=== PATIENT | female | born 1965 | race Caucasian/White ===

== ENCOUNTER 2021-02-19 12:39 | Emergency (ER) | payer MEDICARE ==
[2021-02-19 12:57] VITALS: BP 142/80; PULSE 91; O2SAT 95
--- NOTE | 2021-02-19 13:13 | ERPHSYRPT ---
- History of Present Illness Time Seen by Provider: 02/19/21 12:46 Source: patient Exam Limitations: no limitations Patient Subjective Stated Complaint: Pt states "I was walking my dog and he went off the porch and I went off with him and when I stepped down my left ankle rolled." Triage Nursing Assessment: PT presented alert and oriented X 3, skin pwd. Pt left ankle swollen laterally. CSM X 4 Physician History: 55 years old female presented in the ER with chief complaint of left ankle pain and swelling after she twisted while getting off of the porch with her dog prior to arrival. She has a swelling left lateral ankle and is unable to have any weightbearing. No pain in the foot. No injury anywhere else. Method of Injury: twisted Occurred: just prior to arrival Quality: sharpness Severity of Pain-Max: moderate Severity of Pain-Current: moderate Lower Extremities Pain: ankle: left Modifying Factors: Improves With: immobilization. Worsens With: movement Associated Symptoms: unable to bear weight Allergies/Adverse Reactions: Penicillins Allergy (Severe, Verified 02/19/21 12:58) Swelling Home Medications: Amitriptyline HCl 75 mg PO DAILY 02/19/21 [History] Bupropion HCl [Wellbutrin Xl] 300 mg PO DAILY 02/19/21 [History] Cetirizine HCl 10 mg PO DAILY 02/19/21 [History] Losartan Potassium [Cozaar] 50 mg PO DAILY 02/19/21 [History] Topiramate [Topiramate ER] 100 mg PO DAILY 02/19/21 [History] Hx Tetanus, Diphtheria Vaccination/Date Given: Yes Hx Influenza Vaccination/Date Given: No Hx Pneumococcal Vaccination/Date Given: No Immunizations Up to Date: Yes Travel Risk - International Travel Have you traveled outside of the country in past 3 weeks: No - Coronavirus Screening Are you exhibiting any of the following symptoms?: No Close contact with a COVID-19 positive Pt in past 14-21 Days: No - Vaccine Status Have you recieved a Covid-19 vaccination: Yes Gold Marker: [facility] - Vaccination Dates Date of 2cond Vaccination (if applicable): 12/29/2020 - Review of Systems Constitutional: No Symptoms Ears, Nose, & Throat: No Symptoms Respiratory: No Symptoms Cardiac: No Symptoms Abdominal/Gastrointestinal: No Symptoms Genitourinary Symptoms: No Symptoms Musculoskeletal: Injury, Joint Pain, Joint Swelling Skin: No Symptoms Neurological: No Symptoms Endocrine: No Symptoms Hematologic/Lymphatic: No Symptoms Immunological/Allergic: No Symptoms - Past Medical History Pertinent Past Medical History: Yes Cardiac History: Hypertension - Past Surgical History Past Surgical History: Yes Other Surgical History: tubal. tubal reversal. noelle - Social History Smoking Status: Former smoker Exposure to second hand smoke: No Drug Use: none Patient Lives Alone: No - Female History Hx Now: No - Nursing Vital Signs Nursing Vital Signs: Initial Vital Signs Temperature 99.1 F 02/19/21 12:51 Pulse Rate 91 H 02/19/21 12:51 Respiratory Rate 20 02/19/21 12:51 Blood Pressure 142/80 02/19/21 12:51 O2 Sat by Pulse Oximetry 95 02/19/21 12:51 Pain Scale Pain Intensity 5 - Physical Exam General Appearance: no apparent distress, alert Neck Exam: normal inspection, full range of motion Cardiovascular/Respiratory Exam: normal breath sounds, regular rate/rhythm Back Exam: normal inspection, normal range of motion Legs Exam: bilateral leg: non-tender, normal inspection, normal range of motion Knees Exam: bilateral knee: non-tender, normal inspection, normal range of motion, no evidence of injury Ankle Exam: right ankle: non-tender, normal inspection, normal range of motion, no evidence of injury, left ankle: bone tenderness (Lateral malleolus), limited range of motion, pain, soft tissue tenderness, swelling (Lateral malleolus) Foot Exam: bilateral foot: non-tender, normal inspection, normal range of motion Neuro/Tendon Exam: normal sensation, normal motor functions Mental Status Exam: alert, 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 Skin Exam: normal color SpO2 Interpretation: normal SpO2: 95 O2 Delivery: Room Air Ordered Tests: Active Orders 24 hr Category Date Time Status ANKLE (3 VIEWS) Stat Exams 02/19/21 Ordered - Progress Progress: unchanged Progress Note: 02/19/21 13:23 Does not want any pain medications now. I did not appreciate any fracture dislocation x-rays reviewed by me, official report is pending, will place in a long boot, weightbearing as tolerated and outpatient podiatry follow-up recommended. Discussed signs symptoms of worsening needing return to ER which she seems understanding. Counseled pt/family regarding: diagnosis, need for follow-up, rad results - Departure Departure Disposition: Home Clinical Impression: Ankle sprain Qualifiers: Encounter type: initial encounter Involved ligament of ankle: unspecified ligament Laterality: left Qualified Code(s): S93.402A - Sprain of unspecified ligament of left ankle, initial encounter Condition: Stable Critical Care Time: No Referrals: [facility]PERATOR [Primary Care Provider] - (Call tomorrow for appointment) JONI SOMMERS DPM [ACTIVE STAFF] - (Call tomorrow for appointment) Instructions: Ankle Sprain (DC), Ankle Fracture (DC) Additional Instructions: Take ibuprofen and [place] as needed for pain. Weightbearing as tolerated. Follow-up with podiatry for reevaluation. Return to ER for increasing pain swelling etc. Prescriptions: Ibuprofen 600 mg PO Q6HPRN PRN 10 Days #20 tablet PRN Reason: Pain Hydrocodone/APAP 5/325 [[place] 5/325 mg] 1 each PO Q6H PRN PRN 3 Days #10 tablet MDD 6 PRN Reason: Pain
--- NOTE | 2021-02-19 17:32 | XRAY ---
Indication: Pain following injury. Comparison: None 3 view left ankle demonstrates anterior lateral soft tissue swelling, tiny distal tibial healed fibrous cortical defect, and small plantar/tiny heel spurs. No other bony, articular, or soft tissue abnormalities.
== END 2021-02-19 13:46 | disposition home or self-care (01) ==
LOC: ED 12:39
DX: S93.402A Sprain of unspecified ligament of left ankle, initial encounter (principal); X50.0XXA Overexertion from strenuous movement or load, initial encounter; Y93.K1 Activity, walking an animal; Y92.89 Other specified places as the place of occurrence of the external cause; M25.572 Pain in left ankle and joints of left foot; M25.472 Effusion, left ankle
CPT/HCPCS: 73610; 99283; L4386

== ENCOUNTER 2021-10-20 20:47 | Emergency (ER) | payer MEDICARE ==
[2021-10-20 21:27] VITALS: PULSE 74
--- NOTE | 2021-10-20 21:29 | ERPHSYRPT ---
- History of Present Illness Time Seen by Provider: 10/20/21 21:27 Source: patient Exam Limitations: no limitations Patient Subjective Stated Complaint: Patient states that she has had a headache "for awhile." Indicates that this is not unusual for her but that they have been becoming more frequent and more severe in the last few months since starting a new part-time job at [employer]. 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 Patient worried because approx an hour prior to coming to ED, she could feel her pulse in the right back side of her head. It lasted about 5 minutes and this is new for her. Triage Nursing Assessment: Patient ambulated back to ED without difficulties. Patient is alert and oriented and aswering questions appropriately. PERRL. Physician History: Patient states that she has had a headache "for awhile." Indicates that this is not unusual for her but that they have been becoming more frequent and more severe in the last few months since starting a new part-time job at [employer]. 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 Patient worried because approx an hour prior to coming to ED, she could feel her pulse in the right back side of her head. It lasted about 5 minutes and this is new for her. Timing/Duration: today Quality: throbbing Head Pain Location: global Severity of Pain-Max: moderate Severity of Pain-Current: moderate Recent Head Trauma: no recent headache/trauma Associated Symptoms: denies symptoms Allergies/Adverse Reactions: Penicillins Allergy (Severe, Verified 10/20/21 21:01) Swelling Home Medications: Atorvastatin Calcium [Lipitor] 1 tab PO HS 10/20/21 [History] Clonidine HCl 0.1 mg [Clonidine 0.1 mg Tablet] 1 tab PO BID PRN 10/20/21 [History] Losartan Potassium 50 mg [Cozaar 50 MG] 1 tab PO DAILY 10/20/21 [History] Metformin HCl Xr 500 mg [Glucophage XR 500 MG] 1 tab PO DAILY 10/20/21 [History] Spironolactone 25 mg [Aldactone 25 MG] 1 tab PO DAILY 10/20/21 [History] Hx Tetanus, Diphtheria Vaccination/Date Given: Yes (Not tetanus) Hx Influenza Vaccination/Date Given: No Hx Pneumococcal Vaccination/Date Given: No Immunizations Up to Date: Yes Travel Risk - International Travel Have you traveled outside of the country in past 3 weeks: No (N) If Yes, where;: N - Coronavirus Screening Are you exhibiting any of the following symptoms?: No Close contact with a COVID-19 positive Pt in past 14-21 Days: No - Vaccine Status Have you recieved a Covid-19 vaccination: Yes Line T[employer]ake[employer]: Om[employer]-ID - Vaccination Dates Date of 2cond Vaccination (if applicable): 12/29/2020 - Review of Systems Constitutional: No Fever, No Chills Eyes: No Symptoms Ears, Nose, & Throat: No Symptoms Respiratory: No Cough, No Dyspnea Cardiac: No Chest Pain, No Edema, No Syncope Abdominal/Gastrointestinal: No Abdominal Pain, No Nausea, No Vomiting, No Diarrhea Genitourinary Symptoms: No Dysuria Musculoskeletal: No Back Pain, No Neck Pain Skin: No Rash Neurological: Headache, No Dizziness, No Focal Weakness, No Sensory Changes Psychological: No Symptoms Endocrine: No Symptoms All Other Systems: Reviewed and Negative - Past Medical History Pertinent Past Medical History: Yes Neurological History: No Pertinent History ENT History: No Pertinent History Cardiac History: Hypertension Respiratory History: No Pertinent History Endocrine Medical History: No Pertinent History Musculoskeletal History: No Pertinent History GI Medical History: No Pertinent History History: No Pertinent History Psycho-Social History: No Pertinent History Female Reproductive Disorders: No Pertinent History Other Medical History: Brain Aneurysm in 2011 with stent placement to left side - Past Surgical History Past Surgical History: Yes Neuro Surgical History: Other Cardiac: No Pertinent History Respiratory: No Pertinent History Gastrointestinal: Cholecystectomy Genitourinary: No Pertinent History Musculoskeletal: No Pertinent History Female Surgical History: Tubal Ligation Other Surgical History: tubal reversal, brain stent to left side - Social History Smoking Status: Former smoker Exposure to second hand smoke: No Drug Use: none Patient Lives Alone: No - Nursing Vital Signs Nursing Vital Signs: Initial Vital Signs Temperature 98.6 F 10/20/21 21:01 Pulse Rate 74 10/20/21 21:01 Respiratory Rate 20 10/20/21 21:01 Blood Pressure 144/65 10/20/21 21:01 O2 Sat by Pulse Oximetry 98 10/20/21 21:01 Pain Scale Pain Intensity 6 - Physical Exam General Appearance: no apparent distress Eye Exam: PERRL/EOMI Ears, Nose, Throat Exam: normal ENT inspection, moist mucous membranes Neck Exam: normal inspection, supple, full range of motion, No meningismus Respiratory Exam: normal breath sounds, lungs clear Cardiovascular Exam: regular rate/rhythm, normal heart sounds Gastrointestinal/Abdominal Exam: soft, No tenderness, No distention Back Exam: normal inspection, normal range of motion Mental Status Exam: alert, 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, 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 Exam: normal speech, PERRL, No facial droop Coordination/Gait Exam: normal cerebellar function Motor/Sensory Exam: no motor deficit, no sensory deficit Skin Exam: normal color, warm, dry, No rash SpO2: 98 - Course Nursing assessment & vital signs reviewed: Yes - CT Exams Head CT Interpretation: Tele-radiologist Report, No/Intracranial Hemorrhag Ordered Tests: Active Orders 24 hr Category Date Time Status HEAD WITHOUT CONTRAST [CT] Stat Exams 10/20/21 21:12 Taken Medication Summary Generic Name Dose Route Start Last Admin Trade Name Freq PRN Reason Stop Dose Admin Ketorolac Tromethamine 60 mg 10/20/21 22:24 Ketorolac Tromethamine 30 Mg/Ml Inj IM 10/20/21 22:25 STAT ONE - Progress Progress: improved, unchanged Air Movement: good Blood Culture(s) Obtained: No Antibiotics given: No Counseled pt/family regarding: diagnosis, rad results - Departure Departure Disposition: Home Clinical Impression: Headache Qualifiers: Headache type: other vascular headache Qualified Code(s): G44.1 - Vascular headache, not elsewhere classified Condition: Stable Critical Care Time: No Referrals: LEROY SAGASTUME DO [Primary Care Provider] - Follow up/PCP as directed Instructions: Headache, Adult (DC) Additional Instructions: Discharge/Care Plan MELISSA STEPHENCHARBEL DUNNE was seen on 10/20/21 in the Emergency Room. The patient was counseled regarding Diagnosis,Lab results, Imaging studies, need for follow up and when to return to the Emergency Room. Prescriptions given: Discharge Note I have spoken with the patient and/or caregivers. I have explained the patient's condition, diagnosis and treatment plan based on the information available to me at this time. I have answered the patient's and/or caregiver's questions and addressed any concerns. The patient and/or caregivers have as good understanding of the patient's diagnosis, condition and treatment plan as can be expected at this point. The vital signs have been stable. The patient's condition is stable and appropriate for discharge from the emergency department. The patient will pursue further outpatient evaluation with the primary care physician or other designated or consulting physician as outlined in the discharge instructions. The patient and/or caregivers are agreeable to this plan of care and follow-up instructions have been explained in detail. The patient and/or caregivers have received these instruction. The patient/and or caregivers are aware that any significant change in condition or worsening of symptoms should prompt an immediate return to this or the closest emergency department or call 911. CHARBEL STAHL was seen on 10/20/21 n the Emergency Room. At that time you were treated for an emergent condition, during your visit Laboratory, Radiology and/or other procedures may have been ordered. It is very important that you follow-up with your Primary Care Physician LEROY SAGASTUME DO within the next 24-48 hours to review your Emergency Room visit and the final results of testing that was ordered. Some test results such as Urine Cultures, Blood Cultures, and other cultures if ordered will not be finalized for 24-48 hours. If you do not have a Primary Care Provider please call the medical records department at [phone] ext [phone] to obtain a copy of your results or you may sign into our patient portal to obtain these results by visiting us @ [email or web address] and completing the following steps: 1. Click on the Patient Portal link 2. Click the Patient Self Enrollment Link to complete the enrollment form and entering your 3. Once the enrollment form is completed you will receive an email with a temporary ID and password at the email address you provided. 4. Next choose a user name and password. Your user name must be at least 4 characters long and your password must be at least 4 characters long. 5. Choose a security question from the list and provide your answer to the question. If you already have signed into the Health Portal you may access your Health Care Information 11/02 by the following steps: 1. Login to our website @ [email or web address] 2. Enter your original user name and password. FAQS The [facility] Health Portal is an online tool that contains your Lab Results, Radiology Reports, Visit History, Discharge Instructions and Health Summary Lab and Radiology Results will not be available for 72 hours on the portal. The Portal is a secure site, passwords are encryted and URLs are re-written so they cannot be copied and pasted. You and authorized family members are the only ones who can access your Portal. Also there is a timeout feature that protects your information if you leave the Portal page open. If you have technical difficulty please use the Contact Us link on the page this will allow you to submit any questions you have regarding the Portal or you may contact the Medical Record Department at [phone] ext [phone].
[2021-10-20 22:05] VITALS: BP 119/62
[2021-10-20] MEDS ORDERED: TORAdol 30 mg Injection IM ONE (22:24)
[2021-10-20] MEDS ORDERED: TORAdol 30 mg Injection ONE (22:25)
[2021-10-20 22:26] VITALS: O2SAT 98
--- NOTE | 2021-10-21 07:39 | XRAY ---
Indication: Worsening headaches. Multiple contiguous axial images obtained through the head without contrast. Comparison: None Age-appropriate global atrophy and minimal periventricular degenerative micro-ischemia bilaterally. 8mm remote lacunar infarct left basal ganglia. No acute intracranial hemorrhage, abnormal extra-axial fluid collection, or mass effect. Fourth ventricle is midline without hydrocephalus. [place]-white matter differentiation preserved. Bony calvarium intact. Visualized paranasal sinuses and mastoid air cells are clear. Impression: Atrophy and degenerative micro-ischemia within normal limits for patient's age. Remote lacunar infarct left basal ganglia. No acute intracranial abnormalities. Comment: Preliminary interpretation made by [facility]. No critical discrepancy.
== END 2021-10-20 23:01 | disposition home or self-care (01) ==
LOC: ED 20:47
DX: G44.1 Vascular headache, not elsewhere classified (principal); I10 Essential (primary) hypertension; Z79.899 Other long term (current) drug therapy
CPT/HCPCS: 70450; 96372; 99284; J1885

== ENCOUNTER 2022-09-22 19:22 | Emergency (ER) | payer MEDICARE, OTHER ==
--- NOTE | 2022-09-22 19:25 | ERPHSYRPT ---
- History of Present Illness Time Seen by Provider: 09/22/22 19:25 Source: patient Exam Limitations: no limitations Physician History: This is a 57-year-old white female patient of Dr. Boyer who presents with at least 1 week possibly more pain in her right upper back that came across under her right breast. In the last couple of days she has noticed a rash in this distribution. The pain is significant. Initially there was a burning bouts of sharp pain. She is not taking any medication for this. She is concerned that this may be shingles. She has not had a fever. She does not have cough. She does not have chest pain. She is had no nausea vomiting or diarrhea. Timing/Duration: week(s) (Greater than a week), worse Method of Injury: other (No injury) Quality: burning, sharp Severity of Pain-Max: mild Severity of Pain-Current: moderate (Described as both sharp and burning) Associated Symptoms: denies symptoms Previous symptoms: no prior history Allergies/Adverse Reactions: Penicillins Allergy (Severe, Verified 10/20/21 21:01) Swelling acetaminophen [From Vicodin] Allergy (Verified 10/20/21 22:38) hydrocodone [From Vicodin] Allergy (Verified 10/20/21 22:38) Home Medications: Atorvastatin Calcium [Lipitor] 1 tab PO HS 10/20/21 [History] Clonidine HCl 0.1 mg [Clonidine 0.1 mg Tablet] 1 tab PO BID PRN 10/20/21 [History] Losartan Potassium 50 mg [Cozaar 50 MG] 1 tab PO DAILY 10/20/21 [History] Spironolactone 25 mg [Aldactone 25 MG] 1 tab PO DAILY 10/20/21 [History] Benzonatate 100 mg PO DAILY 08/31/22 [History] Cyanocobalamin (Vitamin B-12) [Vitamin B-12] 1 tab SL DAILY 08/31/22 [History] methocarbamoL [Methocarbamol] 1 tab PO DAILY 08/31/22 [History] Ergocalciferol (Vitamin D2) [Vitamin D2] 1,250 mcg PO DAILY 09/22/22 [History] Metoprolol Succinate 25 mg Xl* [Toprol-Xl 25MG Tablets] 25 mg PO DAILY 09/22/22 [History] Sitagliptin Phosphate 50 MG [Januvia 50 MG] 50 mg PO DAILY 09/22/22 [History] Hx Tetanus, Diphtheria Vaccination/Date Given: Yes (Not tetanus) Hx Influenza Vaccination/Date Given: No Hx Pneumococcal Vaccination/Date Given: No Travel Risk - International Travel Have you traveled outside of the country in past 3 weeks: No - Coronavirus Screening Are you exhibiting any of the following symptoms?: No Close contact with a COVID-19 positive Pt in past 14-21 Days: No - Vaccine Status Have you recieved a Covid-19 vaccination: Yes 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[employer] - Vaccination Dates Date of 2cond Vaccination (if applicable): 12/29/2020 - Review of Systems Constitutional: No Symptoms Eyes: No Symptoms Ears, Nose, & Throat: No Symptoms Respiratory: No Symptoms Cardiac: No Symptoms Abdominal/Gastrointestinal: No Symptoms Genitourinary Symptoms: No Symptoms Musculoskeletal: Back Pain (Dermatomal with associated rash right posterior upper back with radiation around to her right chest underneath her breast with associated rash) Skin: Rash (See above) Neurological: No Symptoms Psychological: No Symptoms Endocrine: No Symptoms Hematologic/Lymphatic: No Symptoms Immunological/Allergic: No Symptoms All Other Systems: Reviewed and Negative - Past Medical History Pertinent Past Medical History: Yes Neurological History: No Pertinent History ENT History: No Pertinent History Cardiac History: Hypertension Respiratory History: No Pertinent History Endocrine Medical History: No Pertinent History Musculoskeletal History: No Pertinent History GI Medical History: No Pertinent History History: No Pertinent History Psycho-Social History: No Pertinent History Female Reproductive Disorders: No Pertinent History Other Medical History: Brain Aneurysm in 2011 with stent placement to left side - Past Surgical History Past Surgical History: Yes Neuro Surgical History: Other Cardiac: No Pertinent History Respiratory: No Pertinent History Gastrointestinal: Cholecystectomy Genitourinary: No Pertinent History Musculoskeletal: No Pertinent History Female Surgical History: Tubal Ligation Other Surgical History: tubal reversal, brain stent to left side - Social History Smoking Status: Former smoker Exposure to second hand smoke: No Drug Use: none Patient Lives Alone: No - Physical Exam General Appearance: no apparent distress, alert, anxiety Eye Exam: PERRL/EOMI, eyes nml inspection Ears, Nose, Throat Exam: normal ENT inspection, moist mucous membranes Neck Exam: normal inspection, non-tender, supple, full range of motion Respiratory Exam: normal breath sounds, lungs clear, airway intact, No chest tenderness, No respiratory distress Cardiovascular Exam: regular rate/rhythm, normal heart sounds, normal peripheral pulses Gastrointestinal Exam: No tenderness Pelvic Exam: not done Rectal Exam: not done Back Exam: rash (Dermatomal right posterior to right lateral to right anterior underneath her breast with associated rash. It is tender without blistering at this point. 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 Dermatomal pattern) Lymphatic Exam: No adenopathy SpO2 Interpretation: normal O2 Delivery: Room Air - Course Nursing assessment & vital signs reviewed: Yes Ordered Tests: Medication Summary Discontinued Medications Generic Name Dose Route Start Last Admin Trade Name Freq PRN Reason Stop Dose Admin Acetaminophen/Codeine Phosphate 1 tab 09/22/22 19:38 Codeine Phosphate/Apap #3 PO 09/22/22 19:39 STAT ONE Acyclovir 800 mg 09/22/22 19:39 Acyclovir 800 Mg Tablet PO 09/22/22 19:40 STAT ONE - Progress Progress: unchanged Progress Note: 09/22/22 19:44 Patient's medical issue is of low complexity. There is no need for a work-up in terms of radiographic studies or blood work. The work up was based on the patient's history of present illness and the findings on physical examination. The patient will be given 800 mg of acyclovir plus a single pill of Tylenol 3. Patient specifically states she can take acetaminophen and codeine but has a problem with hydrocodone. Discharge plan was discussed with the patient and this includes keeping the rash site clean with soap and water and to continue acyclovir as prescribed and her Tylenol 3 pain medicine as prescribed. She is to follow-up with her prescribing physician on Saturday. She is to call their office to make arranges for follow-up appointment. Counseled pt/family regarding: diagnosis, need for follow-up Medical Desision Making - Discussion of managment Agreed on:: Treatment plan, need for follow-up - Risk of complications Low Risk: Low risk of morbidity from additional dx testing or treatment The pt has a mod risk of morbidity or mortality based on: Need for prescription drug management - Departure Clinical Impression: Shingles rash Condition: Stable Critical Care Time: No Referrals: LEROY BOYER DO [Primary Care Provider] - Follow up/PCP as directed Additional Instructions: Keep the rash site clean daily with soap and water. Use the medication as prescribed. Follow-up with your primary care provider for further evaluation and management. Prescriptions: Acyclovir 800 mg [Acyclovir] 800 mg PO 5XD #35 tablet Codeine Phosphate/APAP #3 [Tylenol #3 Tablet] 1 tab PO TID PRN #8 tablet MDD 3 PRN Reason: Pain
[2022-09-22] MEDS ORDERED: Tylenol #3 Tablet PO ONE (19:38)
[2022-09-22] MEDS ORDERED: ACYCLOVIR PO ONE (19:39)
[2022-09-22] MEDS ORDERED: Tylenol #3 Tablet ONE (19:42)
[2022-09-22] MEDS ORDERED: ACYCLOVIR ONE (19:42)
[2022-09-22 19:57] VITALS: BP 139/59; PULSE 76; O2SAT 96
== END 2022-09-22 19:56 | disposition home or self-care (01) ==
LOC: ED 19:22
DX: B02.29 Other postherpetic nervous system involvement (principal); I10 Essential (primary) hypertension; Z79.84 Long term (current) use of oral hypoglycemic drugs; Z79.899 Other long term (current) drug therapy
CPT/HCPCS: 99282; A9270-GY

== ENCOUNTER 2023-10-24 07:42 | Day surgery (SDC) | payer MEDICARE ==
--- NOTE | 2023-09-25 12:43 | HP ---
DATE OF SURGERY: 09/26/2023 HISTORY OF PRESENT ILLNESS: The patient is a 58-year-old female who presents with positive Cologuard. Last colonoscopy was 2008 and she had polyps. She has no colon complaints, concerns or family history at this time. PAST MEDICAL HISTORY: Diabetes, migraine, hypertension, depression. PAST SURGICAL HISTORY: Brain aneurysm. Tubal ligation. Tuboplasty. ALLERGIES: TYLENOL. HYDROCODONE. PENICILLIN. TORADOL. MEDICATIONS: Losartan, methocarbamol, Clonidine, atorvastatin, Spironolactone, Vitamin B12, cyclobenzaprine, bupropion. FAMILY HISTORY: Liver cancer. Heart disease. Diabetes. SOCIAL HISTORY: Former smoker. REVIEW OF SYSTEMS: CONSTITUTIONAL: Denies fever or chills. CHEST: Denies shortness of breath. CVS: Denies chest pain. ABDOMEN: Denies abdominal pain. PHYSICAL EXAMINATION: GENERAL: No acute distress. CHEST: Nonlabored. No shortness of breath. CVS: Regular rate and rhythm. ABDOMEN: Soft. IMPRESSION: Positive Cologuard. PLAN: Colonoscopy with Dr. Julian Dickens. As dictated by Nadya Billy NP.
--- NOTE | 2023-10-23 08:42 | HP ---
DATE OF SURGERY: 10/24/2023 HISTORY OF PRESENT ILLNESS: The patient is a 58-year-old female presented with a positive Cologuard. Last colonoscopy was in 2008 and had polyps. She has no colon symptoms. She has no upper GI symptoms. She has no family history of colon cancer. PAST MEDICAL HISTORY: Hypertension, hyperlipidemia, anxiety, migraine. History of intracranial aneurysm. PAST SURGICAL HISTORY: Aneurysmal repair. Tubal ligation. Tuboplasty. ALLERGIES: ACETAMINOPHEN. PENICILLIN. HYDROCODONE. TORADOL. MEDICATIONS: Losartan, Methocarbamol, clonidine, atorvastatin, Spironolactone, benzonatate, B12, cyclobenzaprine, bupropion, liraglutide. FAMILY HISTORY: Liver cancer. Heart disease. Diabetes. SOCIAL HISTORY: Former smoker. REVIEW OF SYSTEMS: CONSTITUTIONAL: Denies fever or chills. CHEST: Denies shortness of breath. CVS: Denies chest pain. ABDOMEN: Denies abdominal pain. PHYSICAL EXAMINATION: GENERAL: No acute distress. CHEST: Nonlabored. No shortness of breath. CVS: Regular rate and rhythm. ABDOMEN: Soft. IMPRESSION: Positive Cologuard. PLAN: Colonoscopy with Dr. Julian Dickens. As dictated by Nadya Billy NP.
[2023-10-24] MEDS ORDERED: Lactated Ringers 1,000 ML IV ONE (07:56)
[2023-10-24] MEDS: Lactated Ringers 1,000 ML IV SCH (07:59)
[2023-10-24] MEDS ORDERED: Versed 2 MG/2 ML Injection ONE (10:18)
[2023-10-24] MEDS ORDERED: Xylocaine-Mpf 2% 5 Ml Vial ONE (10:18)
[2023-10-24] MEDS ORDERED: DIPRIVAN 200 MG/20 ML IV ONE ×2 (10:18→10:38)
[2023-10-24 11:32] VITALS: PULSE 66; RESP 18; TEMP 97.1
[2023-10-24 12:01] VITALS: BP 130/68; O2SAT 98
--- NOTE | 2023-10-24 12:58 | OP ---
SURGERY DATE/TIME: 10/24/2023 1018 PREOPERATIVE DIAGNOSIS: Positive Cologuard. POSTOPERATIVE DIAGNOSES: 1) A 1.2 cm polyp of the appendiceal orifice. 2) Anticipated follow up three years. 3) Prep score was excellent. PROCEDURES: 1) Colonoscopy to cecum. 2) Hot polypectomy x1. SURGEON: Julian Dickens M.D. ANESTHESIA: MAC. COMPLICATIONS: None. CONDITION: Stable. INDICATION: Positive Cologuard. DESCRIPTION OF PROCEDURE: Taken to endoscopy. Left lateral decubitus position. Scope introduced. Scope advanced to the cecum. At the appendiceal orifice on the inferior lip there was a 1.2 cm polyp which was picked up and extinguished with hot biopsy forceps to extinction. Pen Tender sample submitted. The rest of the base of the cecum, ileocecal valve, ascending, hepatic, transverse, splenic, descending, sigmoid, rectum, anus was satisfactory. The patient tolerated the procedure satisfactorily. We will put her down for follow up in three years. We did have a successful polypectomy postpositive Cologuard testing.
== END 2023-10-24 12:06 | disposition home or self-care (01) ==
LOC: SDC 07:42
PROVIDERS: ATTEND Surgery
DX: D12.1 Benign neoplasm of appendix (principal); R19.5 Other fecal abnormalities
CPT/HCPCS: J2250; J2704

== ENCOUNTER 2023-11-04 14:23 | Emergency (ER) | payer MEDICARE ==
--- NOTE | 2023-11-04 14:34 | ERPHSYRPT ---
- History of Present Illness Time Seen by Provider: 11/04/23 14:34 Source: patient, family Exam Limitations: no limitations Physician History: This is a 58-year-old white female patient of Dr. Bojorquez who woke up this morning and turned her head to the right and noticed dizziness. She was still in the room was spinning. Later in the morning she had a similar episode. Throughout the rest of the day, prior to arrival, she has had the similar symptoms intermittently. She denies head injury. She denies new medications. She does have an associated headache. She has not had fever or chills. She denies vomiting and diarrhea. Patient has a history of hypertension and diabetes. Timing/Duration: today Severity: mild Character of Deficits: none Deficits: no difficulties Baseline/Normal Cognition: alert 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 Current Cognition: alert 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 Baseline Gait: walks w/o assistance Associated Symptoms: No loss of consciousness, No vomiting, No weakness, No slurred speech, No trouble walking, No chest pain Allergies/Adverse Reactions: Penicillins Allergy (Severe, Verified 08/30/23 13:57) Swelling hydrocodone [From Vicodin] Allergy (Verified 08/30/23 13:57) Home Medications: Clonidine HCl 0.1 mg [Clonidine 0.1 mg Tablet] 1 tab PO BID PRN PRN 10/20/21 [History] Losartan Potassium 50 mg [Cozaar 50 MG] 1 tab PO DAILY 10/20/21 [History] Spironolactone 25 mg [Aldactone 25 MG] 1 tab PO DAILY 10/20/21 [History] Cyanocobalamin (Vitamin B-12) [Vitamin B-12] 1 tab SL DAILY 08/31/22 [History] Semaglutide [Ozempic] 0.25 mg SQ UD 11/04/23 [History] Hx Tetanus, Diphtheria Vaccination/Date Given: Yes (Not tetanus) Hx Influenza Vaccination/Date Given: No Hx Pneumococcal Vaccination/Date Given: No Travel Risk - International Travel Have you traveled outside of the country in past 3 weeks: No - Emerging Infectious Disease Are you exhibiting symptoms associated with any current EIDs: No - Review of Systems Constitutional: No Symptoms Eyes: No Symptoms Ears, Nose, & Throat: No Symptoms Respiratory: No Symptoms Cardiac: No Symptoms Abdominal/Gastrointestinal: No Symptoms Genitourinary Symptoms: No Symptoms Musculoskeletal: No Symptoms Skin: No No Symptoms Neurological: Dizziness, Headache Psychological: No Symptoms Endocrine: No Symptoms Hematologic/Lymphatic: No Symptoms Immunological/Allergic: No Symptoms All Other Systems: Reviewed and Negative - Past Medical History Pertinent Past Medical History: Yes Neurological History: No Pertinent History ENT History: No Pertinent History Cardiac History: Hypertension Respiratory History: No Pertinent History Endocrine Medical History: No Pertinent History Musculoskeletal History: No Pertinent History GI Medical History: No Pertinent History History: No Pertinent History Psycho-Social History: No Pertinent History Female Reproductive Disorders: No Pertinent History Other Medical History: Brain Aneurysm in 2011 with stent placement to left side - Past Surgical History Past Surgical History: Yes Neuro Surgical History: Other Cardiac: No Pertinent History Respiratory: No Pertinent History Gastrointestinal: Cholecystectomy Genitourinary: No Pertinent History Musculoskeletal: No Pertinent History Female Surgical History: Tubal Ligation Other Surgical History: tubal reversal, brain stent to left side - Social History Smoking Status: Former smoker Exposure to second hand smoke: No Drug Use: none Patient Lives Alone: No - Nursing Vital Signs Nursing Vital Signs: Initial Vital Signs Temperature 98.4 F 11/04/23 14:46 Pulse Rate 90 11/04/23 14:46 Respiratory Rate 20 11/04/23 14:46 Blood Pressure 143/59 11/04/23 14:46 O2 Sat by Pulse Oximetry 99 11/04/23 14:46 Pain Scale Pain Intensity 0 - Esther Coma Scale Best Eye Response ([place]): (4) open spontaneously Best Verbal Response (Esther): (5) oriented Best Motor Response (Esther): (6) obeys commands [place]inton Total: 15 - Physical Exam General Appearance: no apparent distress, alert, anxiety Eye Exam: bilateral eye: normal inspection, PERRL, EOMI Ears, Nose, Throat Exam: normal ENT inspection, moist mucous membranes Neck Exam: normal inspection, non-tender, supple, full range of motion Respiratory: normal breath sounds, lungs clear, airway intact, No chest tenderness, No respiratory distress Cardiovascular: regular rate/rhythm, normal heart sounds, normal peripheral pulses Gastrointestinal: soft, normal bowel sounds, No tenderness Pelvic Exam: not done Rectal Exam: not done Back Exam: normal inspection, normal range of motion, No CVA tenderness, No vertebral tenderness Extremity Exam: normal inspection, normal range of motion, pelvis stable Mental Status: 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, 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, 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 Exam: normal hearing, normal speech, PERRL Coordination/Gait: normal finger to nose, normal gait, normal cerebellar function Motor/Sensory: no motor deficit, no sensory deficit Skin Exam: normal color, warm, dry SpO2 Interpretation: normal O2 Delivery: Room Air - Course Nursing assessment & vital signs reviewed: Yes EKG Interpreted by Me: RATE (86), Sinus Rhythm, NORMAL AXIS, NORMAL INTERVALS, NORMAL QRS, NORMAL ST-T, Other (No acute ischemic changes on today's twelve-lead EKG.) Ordered Tests: Active Orders 24 hr Category Date Time Status Claims Sorter STAT Care 11/04/23 15:22 Active Clean Catch Urine Specimen STAT Care 11/04/23 15:21 Active IV Insertion STAT Care 11/04/23 15:21 Active HEAD WITHOUT CONTRAST [CT] Stat Exams 11/04/23 15:58 Taken CBC W DIFF Stat Lab 11/04/23 15:00 Completed CMP Stat Lab 11/04/23 15:15 Completed CULTURE,URINE Stat Lab 11/04/23 15:23 Received ETHYL ALCOHOL Stat Lab 11/04/23 15:15 Completed MAGNESIUM Stat Lab 11/04/23 15:15 Completed TROPONIN Q4H Lab 11/04/23 15:15 Completed TROPONIN Q4H Lab 11/04/23 19:30 Ordered TROPONIN Q4H Lab 11/04/23 23:30 Ordered UA W/RFX UR CULTURE Stat Lab 11/04/23 15:23 Completed Urine Triage Profile Stat Lab 11/04/23 15:23 Completed Medication Summary Generic Name Dose Route Start Last Admin Trade Name Freq PRN Reason Stop Dose Admin Levofloxacin 500 mg 11/04/23 18:46 Levofloxacin 500 Mg Tablet PO 11/04/23 18:47 STAT ONE Discontinued Medications Generic Name Dose Route Start Last Admin Trade Name Freq PRN Reason Stop Dose Admin Sodium Chloride 1,000 mls @ 999 mls/hr 11/04/23 15:21 11/04/23 16:52 Sodium Chloride 0.9% 1000 Ml IV 11/04/23 16:21 Infused .Q1H1M STA Infusion Sodium Chloride Confirm 11/04/23 15:30 Sodium Chloride 0.9% 1000 Ml Administered 11/04/23 15:31 Dose 1,000 mls @ ud .ROUTE .STK-MED ONE Lab/Rad Data: Laboratory Result Diagrams 11/04/23 15:00 11/04/23 15:15 Laboratory Results 11/04/23 11/04/23 11/04/23 Range/Units 15:23 15:23 15:15 WBC (4.0-10.5) x10^3/uL RBC (4.1-5.4) x10^6/uL Hgb (12.0-16.0) g/dL Hct (35-47) % MCV (78-100) fL MCH (26-32) pg MCHC (32-36) g/dL RDW (11.5-14.0) % Plt Count (150-450) x10^3/uL MPV (7.5-11.0) fL Gran % (36.0-66.0) % Immature Gran % (Auto) (0.00-0.4) % Nucleat RBC Rel Count (0.00-0.1) % Eos # (Auto) (0-0.5) x10^3/uL Immature Gran # (Auto) (0.00-0.03) x10^3u/L Absolute Lymphs (auto) (1.0-4.6) x10^3/uL Absolute Monos (auto) (0.0-1.3) x10^3/uL Absolute Nucleated RBC (0.00-0.01) x10^3u/L Lymphocytes % (24.0-44.0) % Monocytes % (0.0-12.0) % Eosinophils % (0.00-5.0) % Basophils % (0.0-0.4) % Absolute Granulocytes (1.4-6.9) x10^3/uL Basophils # (0-0.4) x10^3/uL Sodium (135-145) mmol/L Potassium (3.5-5.1) mmol/L Chloride (98-107) mmol/L Carbon Dioxide (22-30) mmol/L Anion Gap (5-15) MEQ/L BUN (7-17) mg/dL Creatinine (0.52-1.04) mg/dL Estimated GFR ML/MIN Glucose (74-106) mg/dL Calcium (8.4-10.2) mg/dL Magnesium (1.6-2.3) mg/dL Total Bilirubin (0.2-1.3) mg/dL AST (14-36) U/L ALT (0-35) U/L Alkaline Phosphatase (38-126) U/L Troponin I < 0.012 (0.000-0.033) ng/mL Serum Total Protein (6.3-8.2) g/dL Albumin (3.5-5.0) g/dL Urine Color Yellow (Yellow) Urine Appearance Clear (Clear) Urine pH 5.5 (4.6-8.0) Ur Specific Hundred 1.010 (1.005-1.030) Urine Protein Negative (Negative) Urine Glucose (UA) Negative (Negative) mg/dL Urine Ketones Negative (Negative) Urine Blood Negative (Negative) Urine Nitrite Negative (Negative) Urine Bilirubin Negative (Negative) Urine Urobilinogen 0.2 (0.2) mg/dL Ur Leukocyte Esterase Moderate A (Negative) U Hyaline Cast (Auto) NONE SEEN (0-2) /LPF Urine Microscopic RBC 0-2 (0-5) /HPF Urine Microscopic WBC 6-10 A (0-5) /HPF Ur Epithelial Cells Rare (None Seen) /HPF Urine Bacteria None Seen (None Seen) /HPF Urine Culture Reflexed YES (NO) Urine Opiates Level NEGATIVE (NEGATIVE) Ur Methadone NEGATIVE (NEGATIVE) Urine Barbiturates NEGATIVE (NEGATIVE) Ur Phencyclidine (PCP) NEGATIVE (NEGATIVE) Urine Amphetamine NEGATIVE (NEGATIVE) U Benzodiazepine Level NEGATIVE (NEGATIVE) Urine Cocaine NEGATIVE (NEGATIVE) Urine Marijuana (THC) NEGATIVE (NEGATIVE) Ethyl Alcohol (0-10) mg/dL 11/04/23 11/04/23 Range/Units 15:15 15:00 WBC 6.2 (4.0-10.5) x10^3/uL RBC 4.11 (4.1-5.4) x10^6/uL Hgb 12.5 (12.0-16.0) g/dL Hct 37.8 (35-47) % MCV 92.0 (78-100) fL MCH 30.4 (26-32) pg MCHC 33.1 (32-36) g/dL RDW 13.1 (11.5-14.0) % Plt Count 171 (150-450) x10^3/uL MPV 10.3 (7.5-11.0) fL Gran % 63.3 (36.0-66.0) % Immature Gran % (Auto) 0.2 (0.00-0.4) % Nucleat RBC Rel Count 0.0 (0.00-0.1) % Eos # (Auto) 0.12 (0-0.5) x10^3/uL Immature Gran # (Auto) 0.01 (0.00-0.03) x10^3u/L Absolute Lymphs (auto) 1.63 (1.0-4.6) x10^3/uL Absolute Monos (auto) 0.49 (0.0-1.3) x10^3/uL Absolute Nucleated RBC 0.00 (0.00-0.01) x10^3u/L Lymphocytes % 26.2 (24.0-44.0) % Monocytes % 7.9 (0.0-12.0) % Eosinophils % 1.9 (0.00-5.0) % Basophils % 0.5 (0.0-0.4) % Absolute Granulocytes 3.95 (1.4-6.9) x10^3/uL Basophils # 0.03 (0-0.4) x10^3/uL Sodium 139 (135-145) mmol/L Potassium 4.3 (3.5-5.1) mmol/L Chloride 107 (98-107) mmol/L Carbon Dioxide 25 (22-30) mmol/L Anion Gap 11.0 (5-15) MEQ/L BUN 16 (7-17) mg/dL Creatinine 0.90 (0.52-1.04) mg/dL Estimated GFR 74.1 ML/MIN Glucose 115 H (74-106) mg/dL Calcium 9.7 (8.4-10.2) mg/dL Magnesium 2.1 (1.6-2.3) mg/dL Total Bilirubin 0.40 (0.2-1.3) mg/dL AST 27 (14-36) U/L ALT 24 (0-35) U/L Alkaline Phosphatase 58 (38-126) U/L Troponin I (0.000-0.033) ng/mL Serum Total Protein 7.2 (6.3-8.2) g/dL Albumin 4.1 (3.5-5.0) g/dL Urine Color (Yellow) Urine Appearance (Clear) Urine pH (4.6-8.0) Ur Specific Hundred (1.005-1.030) Urine Protein (Negative) Urine Glucose (UA) (Negative) mg/dL Urine Ketones (Negative) Urine Blood (Negative) Urine Nitrite (Negative) Urine Bilirubin (Negative) Urine Urobilinogen (0.2) mg/dL Ur Leukocyte Esterase (Negative) U Hyaline Cast (Auto) (0-2) /LPF Urine Microscopic RBC (0-5) /HPF Urine Microscopic WBC (0-5) /HPF Ur Epithelial Cells (None Seen) /HPF Urine Bacteria (None Seen) /HPF Urine Culture Reflexed (NO) Urine Opiates Level (NEGATIVE) Ur Methadone (NEGATIVE) Urine Barbiturates (NEGATIVE) Ur Phencyclidine (PCP) (NEGATIVE) Urine Amphetamine (NEGATIVE) U Benzodiazepine Level (NEGATIVE) Urine Cocaine (NEGATIVE) Urine Marijuana (THC) (NEGATIVE) Ethyl Alcohol < 10 (0-10) mg/dL - Progress Progress: improved, re-examined Progress Note: 11/04/23 15:50 My medical decision making and the assignment of today's medical issue to moderate complexity was based on review of the patient's past medical history, review of the patient's medication list, review of patient drug allergy list, history present illness and physical findings on examination. The workup in this patient includes placement of intravenous line, infusion of normal saline solution, CT scan of the head without contrast, twelve-lead EKG, CBC, CMP, urinalysis, alcohol level, urine drug screen and troponin level. Differential diagnosis includes intracranial abnormality, dysrhythmia, myocardial infarction, electrolyte abnormalities, a urinary tract infection, dehydration. 11/04/23 18:48 I interpreted the patient's laboratory data results. Based on today's results, the patient has a urinary tract infection. There is no evidence of any other acute or emergent medical issue based on the patient's results today. CT scan of the head without contrast was interpreted by the radiologist and compared to similar study dated 10/20/2021. Reviewed the impression. There is a nonacute senile brain with remote lacunar infarct left basal ganglia. This is unchanged from the prior study. Counseled pt/family regarding: lab results, diagnosis, need for follow-up, rad results Medical Desision Making - Independent Historian Additional History obtained from: Family - Diagnostic Testing Diagnostic test were ordered, analyzed, and reviewed by me: Yes Radiological Interpretation: Reviewed by me, Teleradiologist Report - Risk of complications The pt has a mod risk of morbidity or mortality based on: Need for prescription drug management - Departure Departure Disposition: Home Clinical Impression: Dizziness, Urinary tract infection Condition: Stable Critical Care Time: No Referrals: STEVE BOJORQUEZ MD [Primary Care Provider] - Follow up/PCP as directed Additional Instructions: Drink plenty of fluids. Take your medications as prescribed. Call your primary care provider today, 11/05/2023, to make arrangements for further evaluation management in the next 5 to 7 days.
[2023-11-04 14:51] VITALS: TEMP 98.4
[2023-11-04 15:28] LABS: Absolute Neutrophil Ct (ANC) 3.95 x10^3/uL (1.4-6.9); BASOPHIL % 0.5 % (0.0-0.4); Basophil (Absolute #) 0.03 x10^3/uL (0-0.4); Eosinophil % 1.9 % (0.00-5.0); Eosinophil (Absolute #) 0.12 x10^3/uL (0-0.5); Hematocrit 37.8 % (35-47); Hemoglobin 12.5 g/dL (12.0-16.0); IMMATURE GRAN # 0.01 x10^3u/L (0.00-0.03); IMMATURE GRAN % 0.2 % (0.00-0.4); Lymphocyte (Absolute #) 1.63 x10^3/uL (1.0-4.6); Lymphocytes % 26.2 % (24.0-44.0); Mean Corpuscular Hemoglobin 30.4 pg (26-32); Mean Corpuscular Hgb Concent. 33.1 g/dL (32-36); Mean Platelet Volume 10.3 fL (7.5-11.0); Monocyte (Absolute #) 0.49 x10^3/uL (0.0-1.3); Monocytes % 7.9 % (0.0-12.0); Neutrophil % 63.3 % (36.0-66.0); Platelet Count 171 x10^3/uL (150-450); Red Blood Count 4.11 x10^6/uL (4.1-5.4); Red Cell Distribution Width 13.1 % (11.5-14.0); White Blood Count 6.2 x10^3/uL (4.0-10.5)
[2023-11-04] MEDS ORDERED: Sodium Chloride 0.9% 1000 ML 1,000 ML ONE (15:30)
[2023-11-04] MEDS: Sodium Chloride 0.9% 1000 ML 1,000 ML IV STA (15:35)
[2023-11-04 15:56] LABS: ALBUMIN 4.1 g/dL (3.5-5.0); ALKALINE PHOSPHATASE 58 U/L (38-126); BLOOD UREA NITROGEN 16 mg/dL (7-17); CHLORIDE 107 mmol/L (98-107); Calcium 9.7 mg/dL (8.4-10.2); Carbon Dioxide 25 mmol/L (22-30); EST GLOMERULAR FILTRATION RATE 74.1 ML/MIN; ETHYL ALCOHOL < 10 mg/dL (0-10); Glucose 115 mg/dL (74-106); MAGNESIUM 2.1 mg/dL (1.6-2.3); Potassium 4.3 mmol/L (3.5-5.1); SGOT/AST 27 U/L (14-36); SGPT/ALT 24 U/L (0-35); SODIUM 139 mmol/L (135-145); Total Protein 7.2 g/dL (6.3-8.2)
[2023-11-04 16:29] LABS: Appearance Clear (Clear); Bacteria None Seen /HPF (None Seen); Bilirubin Negative (Negative); Blood Negative (Negative); Epithelial Cells Rare /HPF (None Seen); Glucose, Urine Negative (Negative); Hyaline Casts NONE SEEN /LPF (0-2); Ketones Negative (Negative); Leukocyte Esterase Moderate (Negative); Nitrite Negative (Negative); Ph 5.5 (4.6-8.0); Protein,Urine Dip Negative (Negative); RBC 0-2 /HPF (0-5); Urobilinogen 0.2 mg/dL (0.2)
[2023-11-04 16:42] LABS: Amphetamine,Urine NEGATIVE (NEGATIVE); Barbiturate,Urine NEGATIVE (NEGATIVE); Benzodiazepine,Urine NEGATIVE (NEGATIVE); Cocaine,Urine NEGATIVE (NEGATIVE); Methadone,Urine NEGATIVE (NEGATIVE); Opiate,Urine NEGATIVE (NEGATIVE); PCP,Urine NEGATIVE (NEGATIVE); THC,Urine NEGATIVE (NEGATIVE)
[2023-11-04 16:44] LABS: ADD URINE CULTURE? YES (NO)
[2023-11-04 18:33] VITALS: BP 121/74; PULSE 67; RESP 17; O2SAT 99
[2023-11-04] MEDS ORDERED: Levofloxacin 500 MG Tablet ONE (18:51)
[2023-11-04] MEDS: Levofloxacin 500 MG Tablet PO ONE (18:52)
--- NOTE | 2023-11-05 08:40 | XRAY ---
Indication: Dizziness. Multiple contiguous axial images obtained through the head without contrast. Comparison: October 20, 2021 Again age-appropriate global atrophy, minimal periventricular degenerative micro-ischemia, and remote lacunar infarct left basal ganglia. No acute intracranial hemorrhage, abnormal extra-axial fluid collection, or mass effect. Fourth ventricle is midline without hydrocephalus. [place]-white matter differentiation preserved. Bony calvarium intact. Visualized paranasal sinuses and mastoid air cells are clear. Impression: Continued nonacute senile brain with remote lacunar infarct left basal ganglia.
== END 2023-11-04 19:13 | disposition home or self-care (01) ==
LOC: ED 14:23
DX: N39.0 Urinary tract infection, site not specified (principal); R42 Dizziness and giddiness; R51.9 Headache, unspecified; I10 Essential (primary) hypertension; E11.9 Type 2 diabetes mellitus without complications; Z79.85 Long-term (current) use of injectable non-insulin antidiabetic drugs; Z79.899 Other long term (current) drug therapy
CPT/HCPCS: 36000; 36415; 70450; 80053; 80307; 81001; 82077; 83735; 84484; 85025; 87086; 93005; 93041; 96360; 99284; A9270-GY